=== PATIENT | female | born 1960 | race Caucasian/White ===

== ENCOUNTER → 2017-05-10 | Day surgery (SDC) | payer OTHER ==
[~2017-05-10] VITALS: Ht 167.6 cm; Wt 77.1 kg
[~2017-05-10] MED LIST: ACETAMINOPHEN/HYDROcodone 325 MG/5 MG TAB ONE; ADDE30TA PO; ARIP1TAB5 PO; BUPIVACAINE HCL PF 0.5% 30 ML VIAL ONE; CEPH-460 PO; CHLORHEXIDINE GLUCONATE 2 % 1 PACK (2 CLOTHS) TOPICAL PRN; CYMB60CA PO; FAMOTIDINE 20 MG/2 ML VIAL ONE; INSULIN HUMAN REGULAR 1,000 UNITS/10 ML VIAL SQ PRN; LACTATED RINGER'S 1000 ML IV PRN; LIDOCAINE HCL 2% 50 ML VIAL ONE; LYRI150C PO; METOPROLOL TARTRATE 25 MG TAB PO PRN; NEOMYCIN/POLYMYXIN 1 ML G.U. IRRIGANT ONE; NORC5TAB PO; POVIDONE IODINE 5% (ANTISEPSIS KIT) 4 APPLICATIONS EACH NARE PRN; PROPOFOL 200 MG/20 ML AMP IV ONE; SODIUM CHLORID 0.9% 500 ML IV PRN; SODIUM CHLORIDE 0.9% INJ 100 ML ONE; ZONI100C2 PO; ceFAZolin 1,000 MG/NS 100 ML IV SCH; ceFAZolin INJ 1,000 MG VIAL ONE
[2017-05-10 10:11] VITALS: BP 131/77; PULSE 80; RESP 18; TEMP 98.4; O2SAT 100
[2017-05-10 10:33] LABS: HEMATOCRIT 39.8 % (35.0-46.0); MEAN CELL VOLUME 90.2 FL (80.0-100.0); MEAN CORPUSCULAR HEMOGLOBIN 30.1 PG (27.0-34.0); MEAN CORPUSCULAR HGB CONC 33.4 % (32.0-36.0); PLATELET COUNT 276 TH/MM3 (150-450); RED BLOOD COUNT 4.41 MIL/MM3 (4.00-5.30); REVIEW FLAG FINAL; WHITE BLOOD COUNT 6.6 TH/MM3 (4.0-11.0)
[2017-05-10 13:10] VITALS: BP 119/62; PULSE 74; RESP 16; TEMP 98; O2SAT 98
--- NOTE | 2017-05-10 15:06 | EKG ---
Date Performed: 05/10/2017 Time Performed: 10:31:57 PTAGE: 56 years EKG: Sinus rhythm NONSPECIFIC ST & T-WAVE ABNORMALITY BORDERLINE ECG NO PREVIOUS TRACING DOCTOR: Yue Velez Interpretating Date/Time 05/10/2017 14:59:36
--- NOTE | 2017-05-11 13:58 | MP ---
cc: ZACK OG III, M.D. DATE OF SURGERY: 05/10/2017. PREOPERATIVE DIAGNOSIS: Left thumb and index finger lacerations with tendon injury. OPERATIVE PROCEDURE PERFORMED: 1. Left thumb exploration. 2. Left thumb EPL tendon repair 3. Left thumb EPB tendon repair 4. Left index finger exploration. SURGEON: Zack Og III, MD. DESCRIPTION OF THE PROCEDURE IN DETAIL: The patient was brought to the operating room and placed supine on the operating table. After the correct site and side of surgery were verified by members of each team in the room multiple times including the patient and myself and after adequate preoperative markings and preoperative written consent were verified by everyone and after adequate preoperative time-out was performed to everyone's satisfaction and after adequate general anesthesia and after IV sedation had been achieved, the left upper extremity was prepped and draped in the traditional sterile surgical fashion. The sutures were removed. A 50/50 mixture of 2% plain lidocaine and 0.5% plain Marcaine was infiltrated in the skin and subcutaneous tissue all over the dorsal aspect of the left hand and thumb. The existing sutures were removed. Thorough irrigation with saline was performed. The limb was then exsanguinated with an Devonte wrap and a highly placed well-padded axillary tourniquet was inflated to 220 mmHg for a total of 35 minutes. The thumb was examined and the EPL and the EPB tendons were found be transected just proximal to the level of the IP joint and they were still independent that point. The wound was extended proximally and distally for exposure. Then using a 2-0 Prolene suture in a modified nonlocking Amaya fashion, the EPB was repaired first and then the EPL. They were oversewn with 2-0 Prolene to reapproximate the ends and then the EPL tendon was reinforced with a far and wide 4-0 Mersilene suture under no tension. The tendons had retracted significantly and there is a little bit of tension although there is no tension at the repair. Thorough irrigation was performed. The skin edges were then reapproximated using running and interrupted 4-0 nylon sutures. Attention was then paid to the index finger. The existing sutures had been removed. Exploration did not reveal any penetration through the subcutaneous tissue to affect the extensor tendon and the neurovascular bundle was also deep to the extent of the wound and was not affected. Thorough irrigation was performed again. The skin edges were reapproximated using running 4-0 nylon sutures. The hand and arm were thoroughly cleansed and dried. Betadine and Adaptic dressings were applied atop the wounds followed by a bulky soft dressing. The axillary tourniquet was released. The hand and all the fingers including the thumb and index finger became immediately soft, pink and warm and had brisk capillary refill of less than 2 seconds. A well padded, well molded short-arm thumb spica splint was made in the usual fashion keeping the thumb extended. The patient awakened from anesthesia and transported to the post-anesthesia care unit awake and in stable condition. Sponge, needle and instrument counts were correct at the end of the case as reported by the nurses in the room. MD FOX Meadows III/EVELIN /12:17 PM /1:53 PM
== END | disposition home or self-care (01) ==
LOC: PHSDC 09:42
PROVIDERS: ATTEND Orthopaedic Surgery Hand Surgery
DX: S66.222A Laceration of extensor muscle, fascia and tendon of left thumb at wrist and hand level, initial encounter (principal); M79.7 Fibromyalgia; F41.9 Anxiety disorder, unspecified; F32.9 Major depressive disorder, single episode, unspecified; F17.210 Nicotine dependence, cigarettes, uncomplicated; Z01.810 Encounter for preprocedural cardiovascular examination; W45.8XXA Other foreign body or object entering through skin, initial encounter
CPT/HCPCS: 00400; 01810; 20103; 26418; 36415; 85027; 93005; J0690; J3010